=== PATIENT | female | born 1950 | race Caucasian/White ===

== ENCOUNTER 2017-07-13 05:15 | Day surgery (SDC) | payer OTHER ==
[~2017-07-13 05:15] MED LIST: ALPRAZOLAM0.5 M1 PO; AMLODIPINE BES2.5 MG PO; TOPROL XL100 M1 PO
[2017-07-13] MEDS ORDERED: MACROBID 100 M100 MG PO (11:03)
[2017-07-13] MEDS ORDERED: ULTRACET PO (11:04)
== END 2017-07-13 13:45 | disposition home or self-care (01) ==
LOC: CIR.AMB 05:15
DX: N81.11 Cystocele, midline (principal)